=== PATIENT | female | born 1970 | race Caucasian/White ===

== ENCOUNTER → 2017-04-20 | Outpatient (CLI) | payer BC ==
[~2017-04-20] MED LIST: AYG5 PO; CHOL100010 PO; IBUP600T44 PO; MULT-506 PO; OMEG10007 PO; OXYC-57 PO
--- NOTE | 2017-04-20 16:02 | MAMMOGRAPHY REPORT ---
BILATERAL DIGITAL SCREENING MAMMOGRAM TOMOSYNTHESIS WITH CAD: 04/20/2017 CLINICAL HISTORY: Routine screening. Patient has no complaints. TECHNIQUE: Breast tomosynthesis in addition to standard 2D mammography was performed. Current study was also evaluated with a Computer Aided Detection (CAD) system. COMPARISON: Comparison is made to exams dated: 03/26/2016 mammogram, 02/07/2015 mammogram, 02/06/2014 mammogram, 02/05/2013 mammogram, 02/03/2012 mammogram, and 01/29/2011 mammogram - [facility]. BREAST COMPOSITION: The tissue of both breasts is extremely dense, which lowers the sensitivity of m ammography. FINDINGS: A linear scar marker overlies the 12:00 left breast. There are diffuse punctate microcalc ifications throughout the left greater than right breast. No developing mass, architectural distorti on or cluster of suspicious microcalcifications is seen in either breast. IMPRESSION: ACR BI-RADS CATEGORY 2: BENIGN There is no mammographic evidence of malignancy. A 1 year screening mammogram is recommended. The pa tient will receive written notification of the results. Approximately 10% of breast cancers are not detected with mammography. A negative mammographic report should not delay biopsy if a clinically suggestive mass is present. Candice Kiser M.D. ay/:04/20/2017 13:51:01 Human Resources Records Clerk: Gerri Ellis, [facility] letter sent: Normal 1/2 BI-RADS Code: ACR BI-RADS Category 2: Benign
== END | disposition home or self-care (01) ==
LOC: C.MAMM 13:20
PROVIDERS: ATTEND Obstetrics & Gynecology
DX: Z12.31 Encounter for screening mammogram for malignant neoplasm of breast (principal)